=== PATIENT | male | born 1965 | race Caucasian/White ===

== ENCOUNTER 2018-06-25 15:43 | Outpatient (REF) | payer BC, SELFPAY ==
[2018-06-25 11:50] LABS: Anion Gap 11.2 mmol/L (3-11); BUN 29 mg/dL (7-18); CO2 25.8 mmol/L (21.0-32.0); CREATININE 0.79 mg/dL (0.70-1.30); Calcium 9.1 mg/dL (8.5-10.1); Chloride 103 mmol/L (98-107); Cholesterol 260 mg/dL (50-200); Glucose 103 mg/dL (70-100); HDL Cholesterol 31 mg/dL (40-60); LDL CHOLESTEROL 157 mg/dL (<100); Potassium 4.1 mmol/L (3.5-5.1); Sodium 140 mmol/L (136-145); Triglyceride 395 mg/dL (30-150)
== END 2018-06-25 16:03 ==
LOC: NCHCN 15:43
PROVIDERS: PCP Nurse Practitioner; Visit Provider Nurse Practitioner
DX: I10 Essential (primary) hypertension (principal); E78.5 Hyperlipidemia, unspecified
CPT/HCPCS: 80048; 80061; 83721

== ENCOUNTER 2018-09-30 10:17 | Outpatient (REF) | payer BC, SELFPAY ==
[2018-09-30 13:48] LABS: ALT 52 U/L (12-78); AST 23 U/L (15-37); Glucose 94 mg/dL (70-100)
[2018-09-30 15:24] LABS: Cholesterol 261 mg/dL (50-200); HDL Cholesterol 35 mg/dL (40-60); Triglyceride 547 mg/dL (30-150)
[2018-09-30 15:58] LABS: LDL CHOLESTEROL 135 mg/dL (<100)
== END 2018-09-30 10:37 ==
LOC: NCHCN 10:17
PROVIDERS: PCP Nurse Practitioner Family; Visit Provider Nurse Practitioner Family
DX: E78.5 Hyperlipidemia, unspecified (principal); R73.01 Impaired fasting glucose
CPT/HCPCS: 80061; 82947; 83721; 84450; 84460

== ENCOUNTER 2018-10-10 09:15 | Outpatient (REF) | payer BC, SELFPAY ==
[2018-10-10 13:15] LABS: ALT 31 U/L (12-78); AST 12 U/L (15-37); Glucose 99 mg/dL (70-100)
[2018-10-10 13:27] LABS: Calculated LDL 140 mg/dL; Cholesterol 226 mg/dL (50-200); HDL Cholesterol 41 mg/dL (40-60); Triglyceride 229 mg/dL (30-150)
== END 2018-10-10 09:35 ==
LOC: NCHCN 09:15
PROVIDERS: PCP Nurse Practitioner Family; Visit Provider Nurse Practitioner Family
DX: R73.01 Impaired fasting glucose (principal); E78.5 Hyperlipidemia, unspecified; Z00.00 Encounter for general adult medical examination without abnormal findings; I10 Essential (primary) hypertension
CPT/HCPCS: 80061; 82947; 83721; 84450; 84460

== ENCOUNTER 2020-01-20 15:32 | Outpatient (REF) | payer BC, SELFPAY ==
[2020-01-24 17:43] LABS: Patient Race White; SARS-CoV-2 RNA Undetected (Undetected); SARS-CoV-2 Specimen Source Nasal
== END 2020-01-20 15:52 ==
LOC: NCHCN 15:32
PROVIDERS: PCP Nurse Practitioner Family; Visit Provider Family Medicine
DX: Z20.828 Contact with and (suspected) exposure to other viral communicable diseases (principal)
CPT/HCPCS: U0003

== ENCOUNTER 2020-08-03 08:53 | Outpatient (REF) | payer BC, SELFPAY ==
[2020-08-03 14:19] LABS: ALT 54 U/L (16-63); AST 19 U/L (15-37); Anion Gap 8.1 mmol/L (3-11); BUN 20 mg/dL (7-18); CO2 29.9 mmol/L (21.0-32.0); CREATININE 0.9 mg/dL (0.70-1.30); Calcium 9.3 mg/dL (8.5-10.1); Calculated LDL 163 mg/dL (<100); Chloride 104 mmol/L (98-107); Cholesterol 263 mg/dL (<200); Glucose 96 mg/dL (74-106); HDL Cholesterol 38 mg/dL (40-60); Potassium 4.6 mmol/L (3.5-5.1); Sodium 142 mmol/L (136-145); Triglyceride 314 mg/dL (<150)
[2020-08-03 22:37] LABS: PSA, Diagnostic 0.7 ng/mL (0.0-3.5)
== END 2020-08-03 08:54 | disposition home or self-care (01) ==
LOC: NCHCN 08:53
PROVIDERS: PCP Nurse Practitioner Family; Visit Provider Nurse Practitioner Family
DX: E78.5 Hyperlipidemia, unspecified (principal); Z12.5 Encounter for screening for malignant neoplasm of prostate; I10 Essential (primary) hypertension
CPT/HCPCS: 80048; 80061; 84153; 84450; 84460

== ENCOUNTER 2021-02-01 09:14 | Outpatient (REF) | payer BC, SELFPAY ==
[2021-02-01 22:04] LABS: Calculated LDL 152 mg/dL (<100); Cholesterol 244 mg/dL (<200); HDL Cholesterol 39 mg/dL (40-60); Triglyceride 267 mg/dL (<150)
== END 2021-02-01 09:15 | disposition home or self-care (01) ==
LOC: NCHCN 09:14
PROVIDERS: PCP Nurse Practitioner Family; Visit Provider Nurse Practitioner Family
DX: E78.5 Hyperlipidemia, unspecified (principal)
CPT/HCPCS: 80061

== ENCOUNTER 2023-02-06 18:56 | Outpatient (REF) | payer BC, SELFPAY ==
[2023-02-06 16:02] LABS: Abs Immature Grans 0.11 10^3/uL (0.0-0.06); Absolute Basophil Count 0.05 10^3/uL (0.0-0.2); Absolute Eosinophil Count 0.14 10^3/uL (0.0-0.7); Absolute Lymphocyte Count 2.26 10^3/uL (1.2-3.4); Absolute Monocyte Count 0.75 10^3/uL (0.1-0.8); Absolute Neutrophil Count 3.37 10^3/uL (1.2-6.7); Basophils % 0.7; Eosinophils % 2.1; HCT 45.9 % (40.0-50.0); HGB 16.2 g/dL (13.5-17.5); Immature Grans % 1.6; Lymphocytes % 33.8; MCH 32.8 pg (27.0-33.0); MCHC 35.3 % (32.0-36.0); MCV 93 fL (80-95); MPV 10.9 fL (8.0-11.0); Monocytes % 11.2; Neutrophils % 50.6; Platelet Count 215 10^3/uL (130-400); RBC 4.94 10^6/uL (4.36-5.78); RDW 11.9 % (11.8-14.1); RDW-SD 40.7 fL; WBC 6.68 10^3/uL (4.4-10.8)
[2023-02-06 16:54] LABS: ALT 40 U/L (16-63); AST 21 U/L (15-37); Albumin 4.1 g/dL (3.4-5.0); Alkaline Phosphatase 87 U/L (46-116); Anion Gap 12.2 mmol/L (3-11); BUN 14 mg/dL (7-18); Bilirubin, Total 0.5 mg/dL (0.2-1.0); CO2 25.8 mmol/L (21.0-32.0); CREATININE 0.8 mg/dL (0.70-1.30); Calcium 9.8 mg/dL (8.5-10.1); Chloride 103 mmol/L (98-107); Cholesterol 254 mg/dL (<200); Estimated GFR 104.51 (mL/min/1.73m2); Glucose 98 mg/dL (74-106); HDL Cholesterol 41 mg/dL (40-60); Potassium 4.1 mmol/L (3.5-5.1); Sodium 141 mmol/L (136-145); Total Protein 7.2 g/dL (6.4-8.2); Triglyceride 448 mg/dL (<150)
[2023-02-06 17:13] LABS: LDL CHOLESTEROL 126 mg/dL (<100)
== END 2023-02-06 18:57 | disposition home or self-care (01) ==
LOC: NCHCN 18:56
PROVIDERS: PCP Nurse Practitioner Family; Visit Provider Nurse Practitioner Family
DX: I10 Essential (primary) hypertension (principal); E78.5 Hyperlipidemia, unspecified; Z12.5 Encounter for screening for malignant neoplasm of prostate
CPT/HCPCS: 80053; 80061; 83721; 84153; 85025

== ENCOUNTER 2023-08-29 14:57 | Outpatient (REF) | payer BC, SELFPAY ==
[2023-08-29 15:47] LABS: Calculated LDL 178 mg/dL (<100); Cholesterol 277 mg/dL (<200); HDL Cholesterol 43 mg/dL (40-60); Triglyceride 281 mg/dL (<150)
[2023-08-29 16:10] LABS: Hemoglobin A1C 5.7 % (<5.7)
== END 2023-08-29 14:58 | disposition home or self-care (01) ==
LOC: NCHCN 14:57
PROVIDERS: PCP Nurse Practitioner Family; Visit Provider Nurse Practitioner Family
DX: E78.5 Hyperlipidemia, unspecified (principal); E66.9 Obesity, unspecified
CPT/HCPCS: 80061; 83036

== ENCOUNTER 2024-09-10 09:35 | Outpatient (REF) | payer BC, SELFPAY ==
[2024-09-10 15:54] LABS: ALT 56 U/L (16-63); AST 27 U/L (15-37); Alkaline Phosphatase 93 U/L (46-116); Anion Gap 8.9 mmol/L (3-11); BUN 22 mg/dL (7-18); Bilirubin, Total 0.3 mg/dL (0.2-1.0); CO2 32.1 mmol/L (21.0-32.0); CREATININE 0.9 mg/dL (0.70-1.30); Calcium 9.7 mg/dL (8.5-10.1); Chloride 97 mmol/L (98-107); Cholesterol 304 mg/dL (<200); Estimated GFR 99.62 (mL/min/1.73m2); Glucose 105 mg/dL (74-106); HDL Cholesterol 38 mg/dL (>or=40); Potassium 4.2 mmol/L (3.5-5.1); Sodium 138 mmol/L (136-145); Total Protein 7.4 g/dL (6.4-8.2); Triglyceride 538 mg/dL (<150)
[2024-09-10 16:12] LABS: LDL CHOLESTEROL 167 mg/dL (<100)
[2024-09-10 16:17] LABS: Hemoglobin A1C 5.6 % (<5.7)
[2024-09-10 16:39] LABS: COMMENT (LAB VIEW ONLY) 122.78 mg/dL; Microalb ug/mg Crea 12.6 ug/mg Cr
[2024-09-10 22:46] LABS: PSA, Screening 1.3 ng/mL (<=3.5)
== END 2024-09-10 09:36 | disposition home or self-care (01) ==
LOC: NCHCN 09:35
PROVIDERS: PCP Nurse Practitioner Family; Visit Provider Nurse Practitioner Family
DX: I10 Essential (primary) hypertension (principal); R73.03 Prediabetes; Z12.5 Encounter for screening for malignant neoplasm of prostate; E78.5 Hyperlipidemia, unspecified
CPT/HCPCS: 80053; 80061; 83721; 84153; 82043; 82570; 83036